=== PATIENT | male | born 1950 | race Caucasian/White ===

== ENCOUNTER → 2016-06-01 | Outpatient (REF) ==
[~2016-06-01] MED LIST: BUTRANS5 MCG/HR TD; BYETTA 5MC300 MCG/SY SC; CEPHALEXIN500 M1 PO; COUMADIN 5MG5 MG/TAB PO; COUMADIN 6MG6 MG/TAB PO; COUMADIN 77.5 MG/TAB PO; CYMBALTA 20MG20 MG PO; EYE DROP FOR GLAUCOM; FORTAMET1000 MG PO; FORTAMET500 MG PO; GLUCOPHAGE XR500 M1 PO; IBUPROFEN800 MG PO; KADIAN10 MG PO; LANOXIN PO; MIRALAX 17GM PK1 PKT PO; NORCO 325 MG-51 TAB PO; PERCR 7.5 PO; PRAVACHOL80 MG PO; TOPROL XL 50MG50 MG PO; TRAMADOL50 MG PO; ULTRAM 50MG TAB50 MG PO; [UNRECOGNIZED DRUG - REMARK]
[2016-06-01 14:05] LABS: THYROID STIMULATING HORMONE 1.62 uIU/mL (0.465-4.680)
== END ==
LOC: ZLAB.WCH 12:14
PROVIDERS: Internal Medicine
DX: Z01.89 Encounter for other specified special examinations (principal)

== ENCOUNTER → 2017-07-19 | Outpatient (REF) | LOC: ZLAB.WCH 16:10 | DX: Z01.89 Encounter for other specified special examinations (principal) ==

== ENCOUNTER → 2018-07-07 | Outpatient (REF) | LOC: ZLAB.WCH 17:55 | DX: Z01.89 Encounter for other specified special examinations (principal) | CPT/HCPCS: G0103 ==

== ENCOUNTER → 2018-07-10 | Outpatient (REF) | LOC: ZLAB.WCH 18:59 | DX: Z01.89 Encounter for other specified special examinations (principal) ==